=== PATIENT | male | born 1995 ===

== ENCOUNTER 2025-06-16 09:21 | Outpatient (CLI) | payer MEDICAID ==
[~2025-06-16] VITALS: Ht 190.5 cm; Wt 83.0 kg
--- NOTE | 2025-06-26 13:45 | DVHSR ---
APPROVED REPORT Exam: Nuclear Stress Test Indication: Chest pain Ht: 6 ft 3 in Wt: 183 lbs BSA: 2.11 m2 HR: 68 bpm BP: 142/95 mmHg BMI: 22.87 Rhythm: NSR Medical History Medical History: Hypercholesterolemia, Dizziness, Seizures Medications: Florinef, Omeprazole, Vit D, Propranolol Allergies: No known drug allergies Cardiac Risk Factors: Family Hx of CAD Stress Test Details Stress Test: Exercise stress testing was performed using a Sarthak protocol. HR Resting HR: 68 bpm Max Heart Rate (APMHR): 192.469439 bpm Max HR Achieved: 171 bpm Target HR (85% APMHR): 163.396552 bpm % of APMHR: 89.06 Recovery HR: 86 bpm HR response to stress: Normal HR response to stress BP Resting BP: 142/95 mmHg Max BP: 176/81 mmHg Recovery BP: 139/88 mmHg BP response to stress: resting hypertension- exaggerated response ECG Resting ECG: Sinus Rhythm Stress ECG: Sinus Tachycardia Arrhythmia: None Recovery ECG: Sinus Rhythm Clinical Reason for Termination: target HR achieved Stress Symptoms: mild chest pain, fatigue Exercise duration: 6 min 45 sec Exercise capacity: 7.00 METs Symptoms resolved during recovery. Stress ECG Conclusion NON ISCHEMIC CLINICAL RESPONSE NON ISCHEMIC ECG RESPONSE NON ISCHEMIC CARDIOLITE PERFUSION SCAN EF 5-% NM EXAM: Myocardial Perfusion REST/STRESS Imaging Protocol: Rest Tc-99m/Stress Tc-99m 1 day Resting Data Rest SPECT myocardial perfusion imaging was performed in supine position 30 minutes following the intravenous injection of 10.95 mCi of Tc-99m Sestamibi. Time of rest injection: 931 Date: 06/16/2025 Time of rest imagin Date: 06/16/2025 Administration Route: IV Administration Site: Right AC Exercise Stress At peak stress, the patient was injected intravenously with 32.7 mCi of Tc-99m Sestamibi. Time of stress injection: 1103 Date: 06/16/2025 Time of stress imagin Date: 06/16/2025 Administration Route: IV Administration Site: Right AC Heart Rate at time of stress injection: 171 bpm. Patient continued to exercise for 1 minute(s). Gated Stress SPECT was performed 15 minutes after stress injection. The images were gated to evaluate regional wall motion and calculate left ventricular ejection fraction. Comments Cardiolite injection at 5 minutes, 43 seconds into test. Nuclear Conclusion NON ISCHEMIC CLINICAL RESPONSE NON ISCHEMIC ECG RESPONSE NON ISCHEMIC CARDIOLITE PERFUSION SCAN EF 5-%
== END 2025-06-16 17:00 | disposition home or self-care (01) ==
LOC: Rad HDHVI 09:21
PROVIDERS: ATTEND Internal Medicine Cardiovascular Disease
DX: R00.0 Tachycardia, unspecified (principal); R07.9 Chest pain, unspecified; Z13.6 Encounter for screening for cardiovascular disorders; E78.00 Pure hypercholesterolemia, unspecified; R42 Dizziness and giddiness; Z82.49 Family history of ischemic heart disease and other diseases of the circulatory system
CPT/HCPCS: 78452; 93017; A9500; 96374